=== PATIENT | male | born 1995 | race Caucasian/White ===

== ENCOUNTER 2023-12-08 13:32 | Emergency (ER) | payer BC, SELFPAY ==
[2023-12-08 13:35] VITALS: BP 166/88
--- NOTE | 2023-12-08 15:22 | ED.GENMED ---
History of Present Illness
General
Chief Complaint: Headache
Source: patient
Exam Limitations: none
Time Seen by Provider: 12/08/23 15:08
Travel History
Have you had any contact with someone who has COVID-19?: No
Do you have any symptoms of coronavirus? Fever > 100 degrees, chills, cough, shortness of breath, sore throat, loss of taste or smell, muscle aches, or headache?: No
History of Present Illness
History of Present Illness:
Patient is a 28 yr old male who presents today for evaluation sent by urgent care. Patient reports last night 8 PM he suddenly developed loss of his peripheral vision out of his left eye. He describes this as just missing a slice of his vision.
This lasted about 30 to 40 minutes and then he developed a right-sided headache. He did went to bed but noticed he had a headache throughout the night but was able to sleep with the. This morning around 6 and he will with a generalized headache it
was not one-sided. He did take some ibuprofen. He went to urgent care and they sent him here for CAT scan 'to rule out MS.'
Patient complains of a general headache now but is not one-sided. He does have a history of migraines in the past he describes this as just one-sided headache. He has never had any type of ocular migraine or headache involving his vision.
He had no other associated symptoms denied any double vision nausea vomiting sweating numbness tingling upper or lower extremities weakness in upper or lower extremities.
He has a mild headache now his vision has not back to normal since last night.
He denies any recent heavy lifting chiropractor manipulation.
He does have hx of high cholesterol and is normally on rosuvastatin however has not had it in a month because his doctor's office closed.
No family history of strokes or MS.
He does not smoke. No other medical history
Phy Exam
General Physical Exam
General Presentation: well appearing and no apparent distress
General age: appears stated age
General Skin: warm and dry
General Habitus: normal
General Mental: alert
General Hydration: appears well hydrated
Eye Exam
Eye Exam: PERRL and EOMI
Eye Exam General: PERRL: bilateral and EOM intact: bilateral
Pupil Exam: Bilateral: round and reactive
Neurological Exam
Neurological Exam: alert, oriented x3, no motor deficits, no sensory deficits and speech normal
[place] Coma Scale
Eye Opening: Spontaneous
Motor Response: Obeys Commands
Cerebellar
Cerebellar Function: normal finger to nose
Musculoskeletal Exam
Musculoskeletal Exam: full ROM
Skin Exam
Skin Exam: normal color and warm/dry
Psychiatric Exam
Psychiatric Exam: normal mood/affect
Course
Orders/Labs/Results
Orders:
Orders
12/08/23 15:25
CT Head W/o Iv Contrast Urgent
Comment:
Reason For Exam: headache with left eye visua deficit (visual defic
12/08/23 15:27
Visual Acuity- Treatment ONCE
12/08/23 16:49
B12 [Vitamin B12] Urgent
Complete Blood Count/With Diff Urgent
Comprehensive Metabolic Panel Urgent
Folate Urgent
Sed Rate [Erythrocyte Sed Rate] Urgent
TSH Urgent
Abnormal Lab Results
12/08/23
16:49
Neutrophils % 75.3 H %
(42.2-75.2)
Lymphocytes % 18.9 L %
(20.5-51.1)
Total Bilirubin 1.5 H mg/dl
(0.2-1.3)
12/08/23 16:49
12/08/23 16:49
Vital Signs
Initial and Last Documented VS:
Initial Vital Signs
Temp Pulse Resp BP Pulse Ox
98.4 F 76 18 166/88 98
12/08/23 13:35 12/08/23 13:35 12/08/23 13:35 12/08/23 13:35 12/08/23 13:35
Last Documented Vital Signs
Temp Pulse Resp BP Pulse Ox
98.4 F 76 18 125/80 99
12/08/23 13:35 12/08/23 15:31 12/08/23 15:31 12/08/23 15:31 12/08/23 15:31
MDM/Problems Addressed
MDM/Problems Addressed:
Patient is a 28 old male with history of migraines in the past presented sent by urgent care. Patient reported from his left eye last night he had a sudden lateral peripheral vision loss only from his left eye which was followed by one-sided
headache. He went to sleep and when he woke up the one-sided headache was resolved but he did have a generalized headache. That visual deficit lasted about 30-40 minutes and has since resolved and he has had no visual deficits since the initial
episode. He was sent by urgent care for concern for MS. He has no other complaints no double vision no numbness tingling weakness. Likely migraine type headache. This case was reviewed with Dr. Pickett of neuro who does recommend additional labs
for headache migraine workup. He presents in no acute distress with a normal CAT scan and a nml neuro exam.
As recommended by neuro labs including ESR TSH B12 and folate were checked will plan for discharge home with outpatient follow-up.
*Radiology
Radiology exam reviewed: radiology read reviewed
*Pulse Oximetry
Patient hypoxic: no
*Critical Care Note
Total Time (30-74mins, 75-104mins- exclusive of procedures): Not Applicable
Patient Management
Discussion with other providers: Nail Technician Teacher (neuro DR Pickett )
ED Attending Note
-
Portions of this chart may have been created with voice recognition software.� Occasional wrong word or��sound alike� substitutions may have occurred due to the inherent limitations of voice recognition software.
Discharge Plan
Departure
Patient Disposition: Home (Routine Discharge)
Date of Disposition: 12/08/23
Time of Disposition: 18:09
Patient with high blood pressure during this ER visit?: Yes
Condition: Fair
Covid-19: Not Applicable
Discharge Problem:
Migraine
Instructions: Migraines (DC)
Referrals:
Douglas Pickett MD [Active] -
Merrick Mota DO [Family Provider] -
Activity Restrictions/Additional Instructions:
Follow up with neurology as discussed. Call tomorrow to make appointment as soon as possible. Return if any worsening of symptoms have your family doctor/neurology follow-up in your labs. As discussed your bilirubin was mildly elevated today at
1.5 you may have this rechecked by your family doctor.
Interventions
Interventions:
*Risk Screen - Suicide Last Done: 12/08/23 13:35
*General Assessment Last Done: 12/08/23 13:35
*Neglect/Abuse Screening Last Done: 12/08/23 13:35
*ED COVID-19 Vaccine History Last Done: 12/08/23 13:35
ED- Neurological Assessment Last Done: 12/08/23 15:36
Discharge Date and Time
Print Language: SINHALA
[2023-12-08 15:31] VITALS: BP 125/80; BMI 22.2
[2023-12-08 17:03] LABS: % Basophils 0.7 % (0-2); % Eosinophils 1.5 % (0-6); % Immature Granulocytes 0.3 % (0-0.5); % Lymphocytes 18.9 % (20.5-51.1); % Monocytes 3.3 % (1.7-9.3); % Neutrophils 75.3 % (42.2-75.2); Absolute Basophils 0.1 10^3/uL (0-0.2); Absolute Eosinophils 0.1 10^3/uL (0-0.7); Absolute Lymphocytes 1.3 10^3/uL (1.2-3.4); Absolute Monocytes 0.2 10^3/uL (0.1-0.6); Absolute Neutrophils 5.1 10^3/uL (1.4-6.5); Hematocrit 43.3 % (39.0-52.0); Hemoglobin 15.2 g/dL (13.0-18.0); Mean Corp Hgb Conc. 35.1 g/dL (33.0-37.0); Mean Corpuscular Hgb 30.7 pg (27.0-31.0); Mean Corpuscular Volume 87.5 fL (80.0-94.0); Mean Platelet Volume 9.5 fL (7.4-10.4); Nucleated Red Blood Cells % 0 % (-); Platelet Count 252 10^3/uL (130-400); Red Blood Cell Count 4.95 10^6/uL (4.70-6.10); Red Cell Dist. Width 12.7 % (11.5-14.5); White Blood Cell Count 6.7 10^3/uL (4.8-10.8)
[2023-12-08 17:13] LABS: Erythrocyte Sed Rate 4 mm/hour (0-20)
[2023-12-08 17:21] LABS: ALT (SGPT) 15 U/L (0-50); AST (SGOT) 28 U/L (17-59); Albumin 4.7 g/dl (3.5-5.0); Alkaline Phosphatase 90 U/L (38-126); Blood Urea Nitrogen 19 mg/dl (9-20); Calcium 10.2 mg/dl (8.4-10.2); Carbon Dioxide 27 mmol/L (22-30); Chloride 105 mmol/L (98-107); Estimated Creatinine Clearance > 125 ml/min; Glucose 92 mg/dl (70-99); Potassium 4.2 mmol/L (3.5-5.1); Sodium 139 mmol/L (135-145); Total Bilirubin 1.5 mg/dl (0.2-1.3); Total Protein 7.4 g/dl (6.3-8.2); eGFR > 60.00
[2023-12-08 17:49] LABS: TSH 1.27 uIU/ml (0.47-4.68)
[2023-12-08 18:23] VITALS: BP 126/66
[2023-12-08 18:25] LABS: Folate > 20.0 ng/ml (2.76-20); Vitamin B12 999 pg/ml (239-931)
== END 2023-12-08 18:24 | disposition home or self-care (01) ==
LOC: EMR 13:32
PROVIDERS: Nurse Practitioner; EMERGENCY PHYSICIAN Emergency Medicine; FAMILY PHYSICIAN Family Medicine
DX: G43.909 Migraine, unspecified, not intractable, without status migrainosus (principal); R03.0 Elevated blood-pressure reading, without diagnosis of hypertension; E78.00 Pure hypercholesterolemia, unspecified
CPT/HCPCS: 99284; 70450; 80053; 82607; 82746; 84443; 85025; 85652